=== PATIENT | female | born 1965 | race Caucasian/White ===

== ENCOUNTER 2018-08-08 22:56 | Emergency (ER) | payer BC, OTHER ==
[2018-08-08 23:12] VITALS: BP 133/76
[2018-08-08] MEDS ORDERED: Albuterol/Ipratropium 3.0-0.5 MG/3 ML Neb Soln NEB ONE (23:14)
[2018-08-08 23:36] LABS: CHLORIDE,CL 103 mmol/L (98-107); SODIUM,NA 141 mmol/L (136-145)
[2018-08-08 23:39] LABS: BASE EXCESS ARTERIAL 0 mmol/L (-2-3); BICARBONATE,ARTERIAL 24.3 mmol/L (22-26); O2 DELIVERY DEVICE ROOM AIR; O2 SATURATION ARTERIAL 97 % (95-98); PCO2 ARTERIAL 35 mmHG (35-45); PO2 ARTERIAL 85 mmHG (80-105)
--- NOTE | 2018-08-09 00:14 | EDM.PDOC ---
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 [No Known Home Meds] 10/10/14 [History] Past Medical History Respiratory History: Reports: Other (See Below) Other Respiratory History: smoker - smokers cough Gastrointestinal History: Reports: Chronic Diarrhea COAL CAGER History: Reports: Ectopic , Musculoskeletal History: Reports: Other (See Below) Other Musculoskeletal History: recent fx L 5. toe recently - Infectious Disease History Infectious Disease History: Reports: Chicken Pox, Measles - Past Surgical History Respiratory Surgical History: Reports: None GI Surgical History: Reports: None Musculoskeletal Surgical History: Reports: None Social & Family History - Family History Family Medical History: Noncontributory - Tobacco Use Smoking Status *Q: Current Every Day Smoker Years of Tobacco use: 20 Packs/Tins Daily: 0.5 - Caffeine Use Caffeine Use: Reports: Energy Drinks - Recreational Drug Use Recreational Drug Use: No ED ROS GENERAL - Review of Systems Review Of Systems: See Below Constitutional: Reports: Weakness, Fatigue HEENT: Reports: Rhinitis Respiratory: Reports: Shortness of Breath, Cough, Other (Hurts to breathe) Cardiovascular: Reports: No Symptoms, Chest Pain, Lightheadedness Endocrine: Reports: No Symptoms GI/Abdominal: Reports: No Symptoms : Reports: No Symptoms Musculoskeletal: Reports: No Symptoms Skin: Reports: No Symptoms Neurological: Reports: No Symptoms Psychiatric: Reports: No Symptoms Hematologic/Lymphatic: Reports: No Symptoms Immunologic: Reports: No Symptoms ED EXAM, GENERAL - Physical Exam Exam: See Below Exam Limited By: No Limitations General Appearance: Alert, WD/WN, No Apparent Distress Eye Exam: Bilateral Eye: EOMI, PERRL Ears: Normal External Exam, Normal Canal, Hearing Grossly Normal, Normal TMs Ear Exam: Bilateral Ear: Auricle Normal, Canal Normal, TM normal Nose: Clear Rhinorrhea Throat/Mouth: Normal Inspection, Normal Lips, Normal Teeth, Normal Gums, Normal Oropharynx, Normal Voice, No Airway Compromise Head: Atraumatic, Normocephalic Neck: Normal Inspection, Supple, Non-Tender, Full Range of Motion Respiratory/Chest: Respiratory Distress (Mild), Decreased Breath Sounds Cardiovascular: Normal Peripheral Pulses, Regular Rate, Rhythm, No Edema, No Gallop, No JVD, No Murmur, No Rub GI/Abdominal: Normal Bowel Sounds, Soft, Non-Tender, No Organomegaly, No Distention, No Abnormal Bruit, No Mass (Female) Exam: Deferred Rectal (Female) Exam: Deferred Back Exam: Normal Inspection, Full Range of Motion, NT Extremities: Normal Inspection, Normal Range of Motion, Non-Tender, Normal Capillary Refill, No Pedal Edema Neurological: Alert, Oriented, CN II-XII Intact, Normal Cognition, Normal Gait, Normal Reflexes, No Motor/Sensory Deficits Psychiatric: Normal Affect, Normal Mood Skin Exam: Warm, Dry, Intact, Normal Color, No Rash Course - Vital Signs Last Recorded V/S: Last Vital Signs Temp 98.8 F 08/08/18 23:04 Pulse 74 08/08/18 23:04 Resp 16 08/08/18 23:04 BP 133/76 08/08/18 23:04 Pulse Ox 99 08/08/18 23:04 - Orders/Labs/Meds Orders: Active Orders 24 hr Category Date Time Status RT Aerosol Therapy [RC] ASDIRECTED Care 08/08/18 23:14 Active CXR [Chest 2V] [CR] Stat Exams 08/08/18 23:25 Taken Labs: Laboratory Tests 08/08/18 08/08/18 08/08/18 Range/Units 23:10 23:10 23:32 WBC 15.7 H (4.0-10.2) K/uL RBC 4.12 (3.77-5.09) M/uL Hgb 13.0 (11.7-15.5) g/dL Hct 38.4 (34.0-46.0) % MCV 93.2 (84.0-98.0) fL MCH 31.6 (28.2-33.3) pg MCHC 33.9 (31.7-36.0) g/dL RDW 12.9 (11.2-14.1) % Plt Count 293 (150-350) K/uL Neut % (Auto) 77.3 (45.0-80.0) % Lymph % (Auto) 12.5 (10.0-50.0) % [place] % (Auto) 9.5 (2.0-14.0) % Eos % (Auto) 0.5 (0.0-5.0) % Baso % (Auto) 0.2 (0.0-2.0) % Neut # (Auto) 12.11 H (1.40-7.00) K/uL Lymph # (Auto) 1.96 (0.50-3.50) K/uL [place] # (Auto) 1.49 H (0.00-1.00) K/uL Eos # (Auto) 0.08 (0.00-0.50) K/uL Baso # (Auto) 0.03 (0.00-0.20) K/uL ABG pH 7.45 (7.35-7.45) ABG pCO2 35 (35-45) mmHG ABG pO2 85 (80-105) mmHG ABG HCO3 24.3 (22-26) mmol/L ABG Total CO2 25 (23-27) mmol/L ABG O2 Saturation 97 (95-98) % ABG Base Excess 0 (-2-3) mmol/L O2 Delivery Device Room air Sodium 141 (136-145) mmol/L Potassium 4.1 (3.5-5.1) mmol/L Chloride 103 (98-107) mmol/L Carbon Dioxide 25.0 (21.0-32.0) mmol/L BUN 20 H (7-18) mg/dL Creatinine 0.87 (0.51-1.17) mg/dL Est Cr Clr Drug Dosing TNP Estimated GFR (MDRD) > 60 mL/min Glucose 115 H (74-106) mg/dL Calcium 10.0 (8.5-10.1) mg/dL Total Bilirubin 0.3 (0.2-1.0) mg/dL AST 21 (15-37) U/L ALT 24 (12-78) U/L Alkaline Phosphatase 101 (46-116) IU/L Total Protein 8.6 H (6.4-8.2) g/dL Albumin 3.4 (3.4-5.0) g/dL Meds: Medications Discontinued Medications Generic Name Dose Route Start Last Admin Trade Name Stefanie PRN Reason Stop Dose Admin Albuterol/Ipratropium 3 ml 08/08/18 23:14 08/08/18 23:17 Duoneb 3.0-0.5 Mg/3 Ml NEB 08/08/18 23:15 3 ml ONETIME ONE Administration Departure - Departure Time of Disposition: 00:29 Disposition: Home, Self-Care 01 Condition: Fair Clinical Impression: Respiratory distress, Inhalation of noxious fumes - Discharge Information Referrals: PCP,Unknown [Primary Care Provider] - Care Plan Goals: At this time patient will be sent home to rest albuterol inhalers 2 puffs every 4-6 hours when necessary if shortness of breath patient is to return to the ER tomorrow we will repeat a CBC chest x-ray follow-up with primary as needed - My Orders Last 24 Hours: My Active Orders 08/08/18 23:14 RT Aerosol Therapy [RC] ASDIRECTED 08/08/18 23:25 CXR [Chest 2V] [CR] Stat - Assessment/Plan Last 24 Hours: My Active Orders 08/08/18 23:14 RT Aerosol Therapy [RC] ASDIRECTED 08/08/18 23:25 CXR [Chest 2V] [CR] Stat
== END 2018-08-09 00:41 | disposition home or self-care (01) ==
LOC: LL.ED 22:56
DX: T65.891A Toxic effect of other specified substances, accidental (unintentional), initial encounter (principal); R06.03 Acute respiratory distress; F17.210 Nicotine dependence, cigarettes, uncomplicated; Z91.040 Latex allergy status
CPT/HCPCS: 36415; 71046; 80053; 82803; 85025; 99285; J7620-GY

== ENCOUNTER 2019-07-26 02:33 | Emergency (ER) | payer OTHER ==
[2019-07-26 02:41] VITALS: BP 148/81; PULSE 67
--- NOTE | 2019-07-26 03:26 | EDM.PDOC ---
ED HPI GENERAL MEDICAL PROBLEM - General Chief Complaint: Back Pain or Injury Stated Complaint: lumabr strain Time Seen by Provider: 07/26/19 02:40 Source of Information: Reports: Patient, Other (Coworkers) History Limitations: Reports: Other (Lower back pain) - History of Present Illness INITIAL COMMENTS - FREE TEXT/NARRATIVE: Patient is a 54-year-old female who works at [employer] patient was taking out her chart garbage she was carrying 2 bags to the garbage once she reached the garbage and she threw the garbage into the dumpsters and developed significant lower back pain she walked to the [employer] to station which is approximately 100 feet complaining of back pain at that time her administrators were called and she was brought to the ER via car walking to the car patient had significant lower back pain radiating down her leg. 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 ATTORNEY: Reports: Cold Therapy Right Lumbar Pain Score (Numeric/FACES): 8 - Related Data Allergies Allergy/AdvReac Type Severity Reaction Status Date / Time latex Allergy Hives Verified 07/26/19 02:37 Home Meds: Home Meds Ketorolac [Toradol] 10 mg PO Q6H 5 Days #10 tab 07/26/19 [Rx] Past Medical History HEENT History: Reports: None Cardiovascular History: Reports: None Respiratory History: Reports: None Other Respiratory History: smoker - smokers cough Gastrointestinal History: Reports: None Genitourinary History: Reports: None 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: Ectopic , Musculoskeletal History: Reports: Other (See Below) Other Musculoskeletal History: recent fx L 5th toe Neurological History: Reports: None Psychiatric History: Reports: None Endocrine/Metabolic History: Reports: None Immunologic History: Reports: None Oncologic (Cancer) History: Reports: None Dermatologic History: Reports: None - Infectious Disease History Infectious Disease History: Reports: Chicken Pox, Measles - Past Surgical History Head Surgeries/Procedures: Reports: None HEENT Surgical History: Reports: None Cardiovascular Surgical History: Reports: None Respiratory Surgical History: Reports: None GI Surgical History: Reports: None Musculoskeletal Surgical History: Reports: None Social & Family History - Family History Family Medical History: Noncontributory - Tobacco Use Smoking Status *Q: Current Every Day Smoker Years of Tobacco use: 35 Packs/Tins Daily: 0.5 - Caffeine Use Caffeine Use: Reports: Energy Drinks, Soda - Recreational Drug Use Recreational Drug Use: No ED ROS GENERAL - Review of Systems Review Of Systems: See Below Constitutional: Reports: No Symptoms HEENT: Reports: No Symptoms Respiratory: Reports: No Symptoms Cardiovascular: Reports: No Symptoms Endocrine: Reports: No Symptoms GI/Abdominal: Reports: No Symptoms : Reports: No Symptoms Musculoskeletal: Reports: Back Pain, Other (Right leg radiculopathy) Skin: Reports: No Symptoms Neurological: Reports: Tingling, Difficulty Walking, Weakness, Gait Disturbance Psychiatric: Reports: No Symptoms Hematologic/Lymphatic: Reports: No Symptoms Immunologic: Reports: No Symptoms ED EXAM,LOWER BACK PAIN/INJURY - Physical Exam Exam: See Below Exam Limited By: No Limitations General Appearance: Alert, WD/WN, No Apparent Distress, Moderate Distress Ears: Normal External Exam, Normal Canal, Hearing Grossly Normal, Normal TMs Nose: Normal Inspection, Normal Mucosa, No Blood Throat/Mouth: Normal Inspection, Normal Lips, Normal Teeth, Normal Gums, Normal Oropharynx, Normal Voice, No Airway Compromise Head: Atraumatic, Normocephalic Neck: Normal Inspection, Supple, Non-Tender, Full Range of Motion Respiratory/Chest: No Respiratory Distress, Lungs Clear, Normal Breath Sounds, No Accessory Muscle Use, Chest Non-Tender Cardiovascular: Normal Peripheral Pulses, Regular Rate, Rhythm, No Edema, No Gallop, No JVD, No Murmur, No Rub GI/Abdominal: Normal Bowel Sounds, Soft, Non-Tender, No Organomegaly, No Distention, No Abnormal Bruit, No Mass (Female) Exam: Deferred Rectal (Female) Exam: Deferred Back Exam: Decreased Range of Motion, Muscle Spasm, Vertebral Tenderness Extremities: Leg Pain, Limited Range of Motion Neurological: Normal Dorsiflexion, CN II-XII Intact, Normal Plantar Flexion, Straight Leg Raise (R) (Positive at 15), Difficulty Walking Skin Exam: Warm, Dry, Intact, Normal Color, No Rash Lymphatic: No Adenopathy Course - Vital Signs Last Recorded V/S: Last Vital Signs Temp 98.1 F 07/26/19 02:38 Pulse 67 07/26/19 02:38 Resp 20 07/26/19 02:38 BP 148/81 H 07/26/19 02:38 Pulse Ox 99 07/26/19 02:38 - Orders/Labs/Meds Orders: Active Orders 24 hr Category Date Time Status Lumbar Spine Min 4V [CR] Stat Exams 07/26/19 02:49 Ordered Departure - Departure Time of Disposition: 03:42 Disposition: Home, Self-Care 01 Condition: Fair Clinical Impression: Low back pain radiating down leg - Discharge Information *PRESCRIPTION DRUG MONITORING PROGRAM REVIEWED*: No *COPY OF PRESCRIPTION DRUG MONITORING REPORT IN PATIENT MONIQUE: No Referrals: PCP,Unknown [Primary Care Provider] - Care Plan Goals: At this time patient will be referred to Malena or PCP patient has on x-rays some degenerative changes with possible hypertrophic changes there is significant exaggerated lumbar lordosis and facet hypertrophy. Patient will be sent home on Flexeril and Toradol to take [id number] as ordered if pain continues or does not improve we will refer her to MRI and orthopedic Dr. Gutierrez. Patient to ice back for the next 48 hours and also may take Tylenol 500 every 6 hours for pain - My Orders Last 24 Hours: My Active Orders 07/26/19 02:49 Lumbar Spine Min 4V [CR] Stat - Assessment/Plan Last 24 Hours: My Active Orders 07/26/19 02:49 Lumbar Spine Min 4V [CR] Stat
[2019-07-26] MEDS: Ketorolac 60 MG/2 ML SDV IM ONE (03:52)
== END 2019-07-26 04:05 | disposition home or self-care (01) ==
LOC: LL.ED 02:33
DX: M62.830 Muscle spasm of back (principal); M54.5 Low back pain; F17.210 Nicotine dependence, cigarettes, uncomplicated; Z91.040 Latex allergy status; X50.0XXA Overexertion from strenuous movement or load, initial encounter
CPT/HCPCS: 72110; 99283-25

== ENCOUNTER 2020-01-04 00:08 | Emergency (ER) | payer OTHER ==
[2020-01-04 00:16] VITALS: BP 140/68; PULSE 57
--- NOTE | 2020-01-04 00:58 | EDM.PDOC ---
ED HPI GENERAL MEDICAL PROBLEM - General Chief Complaint: Lower Extremity Injury/Pain Stated Complaint: fall, left knee pain Time Seen by Provider: 01/04/20 00:20 Source of Information: Reports: Patient History Limitations: Reports: No Limitations - History of Present Illness INITIAL COMMENTS - FREE TEXT/NARRATIVE: Pt tripped on uneven ground and fell and landed on left knee Pain in left knee Difficulty walking and weight bearing Onset: Today, Sudden Duration: Hour(s):, Getting Worse Location: Reports: Lower Extremity, Left Quality: Reports: Throbbing Severity: Moderate Improves with: Reports: Immobilization Worsens with: Reports: Movement Context: Reports: Trauma Treatments SUPERVISOR POLISHING: Reports: Acetaminophen, Cold Therapy, NSAIDS Left Knee Pain Score (Numeric/FACES): 8 - Related Data Allergies Allergy/AdvReac Type Severity Reaction Status Date / Time latex Allergy Hives Verified 01/04/20 00:09 Home Meds: Home Meds Ketorolac [Toradol] 10 mg PO Q6H 5 Days #10 tab 07/26/19 [Rx] Acetaminophen 1,000 mg PO ONETIME 01/04/20 [History] Ibuprofen [Advil] 2 cap PO ONETIME 01/04/20 [History] Past Medical History HEENT History: Reports: None Cardiovascular History: Reports: None Respiratory History: Reports: None Other Respiratory History: smoker - smokers cough Gastrointestinal History: Reports: None Genitourinary History: Reports: None VP SECURITY History: Reports: Ectopic , Musculoskeletal History: Reports: Other (See Below) Other Musculoskeletal History: recent fx L 5th toe Neurological History: Reports: None Psychiatric History: Reports: None Endocrine/Metabolic History: Reports: None Immunologic History: Reports: None Oncologic (Cancer) History: Reports: None Dermatologic History: Reports: None - Infectious Disease History Infectious Disease History: Reports: Chicken Pox, Measles - Past Surgical History Head Surgeries/Procedures: Reports: None HEENT Surgical History: Reports: None Cardiovascular Surgical History: Reports: None Respiratory Surgical History: Reports: None GI Surgical History: Reports: None Musculoskeletal Surgical History: Reports: None Social & Family History - Family History Family Medical History: Noncontributory - Tobacco Use Smoking Status *Q: Current Every Day Smoker Years of Tobacco use: 40 Packs/Tins Daily: 0.5 - Caffeine Use Caffeine Use: Reports: Energy Drinks Review of Systems - Review of Systems Review Of Systems: See Below Musculoskeletal: Reports: Joint Pain, Other (Left knee pain) ED EXAM, GENERAL - Physical Exam Exam: See Below Exam Limited By: No Limitations Extremities: Joint Swelling, Limited Range of Motion, Other (Left knee tender with palpation and ROM) Course - Vital Signs Last Recorded V/S: Last Vital Signs Temp 98.9 F 01/04/20 00:12 Pulse 57 L 01/04/20 00:12 Resp 18 01/04/20 00:12 BP 140/68 01/04/20 00:12 Pulse Ox 100 01/04/20 00:12 - Orders/Labs/Meds Orders: Active Orders 24 hr Category Date Time Status Knee 3V Lt [CR] Stat Exams 01/04/20 00:19 Ordered - Re-Assessments/Exams Free Text/Narrative Re-Assessment/Exam: 01/04/20 00:57 Xray: Non-displaced patellar fracture 01/04/20 00:57 Pt placed in immobilizer and given crutches Departure - Departure Time of Disposition: 01:00 Disposition: Home, Self-Care 01 Clinical Impression: Patella fracture Qualifiers: Encounter type: initial encounter Fracture type: closed Fracture morphology: transverse Fracture alignment: nondisplaced Laterality: left Qualified Code(s): S82.035A - Nondisplaced transverse fracture of left patella, initial encounter for closed fracture - Discharge Information *PRESCRIPTION DRUG MONITORING PROGRAM REVIEWED*: Not Applicable *COPY OF PRESCRIPTION DRUG MONITORING REPORT IN PATIENT MONIQUE: Not Applicable Instructions: How to Use a Knee Immobilizer, [id number], Patellar Fracture, Adult Referrals: Malena Richey, JOINT CUTTER MACHINE [Primary Care Provider] - Additional Instructions: Ice as needed Wear immobilizer Use crutches Follow up in clinic in AM for recheck Rx Tylenol with Codeine ! pill every 4 to 6 hours for pain Sepsis Event Note - Evaluation Sepsis Screening Result: No Definite Risk - Focused Exam Vital Signs: Vital Signs Temp Pulse Resp BP Pulse Ox 01/04/20 00:12 98.9 F 57 L 18 140/68 100 Date Exam was Performed: 01/04/20 Time Exam was Performed: 00:52 - My Orders Last 24 Hours: My Active Orders 01/04/20 00:19 Knee 3V Lt [CR] Stat - Assessment/Plan Last 24 Hours: My Active Orders 01/04/20 00:19 Knee 3V Lt [CR] Stat
== END 2020-01-04 01:38 | disposition home or self-care (01) ==
LOC: LL.ED 00:08
DX: S82.035A Nondisplaced transverse fracture of left patella, initial encounter for closed fracture (principal); F17.210 Nicotine dependence, cigarettes, uncomplicated; Z91.040 Latex allergy status; W19.XXXA Unspecified fall, initial encounter
CPT/HCPCS: 73562-LT; 99283-25

== ENCOUNTER 2022-06-10 01:47 | Emergency (ER) | payer OTHER, BC ==
[2022-06-10 01:54] VITALS: PULSE 64
[2022-06-10 02:14] VITALS: BP 139/72
[2022-06-10] MEDS ORDERED: Lidocaine 4% 1 each Patch TOP PRN (02:40)
[2022-06-10] MEDS: Naproxen 250 MG Tab PO PRN (03:09)
== END 2022-06-10 03:15 | disposition home or self-care (01) ==
LOC: LL.ED 01:47
DX: S29.011A Strain of muscle and tendon of front wall of thorax, initial encounter (principal); F17.210 Nicotine dependence, cigarettes, uncomplicated; Z91.040 Latex allergy status; Z87.891 Personal history of nicotine dependence; X50.1XXA Overexertion from prolonged static or awkward postures, initial encounter; Y99.0 Civilian activity done for income or pay
CPT/HCPCS: 71046; 93005; 93010; 99284; 99285; A9270-GY